=== PATIENT | female | born 1950 | race Caucasian/White ===

== ENCOUNTER → 2022-04-23 10:36 | Outpatient (CLI) | payer MEDICARE, MEDICAID, SELFPAY | PROVIDERS: PCP Internal Medicine Adolescent Medicine; Visit Provider Internal Medicine Adolescent Medicine | DX: G47.33 Obstructive sleep apnea (adult) (pediatric) (principal); G25.81 Restless legs syndrome | CPT/HCPCS: G0399 ==

== ENCOUNTER 2023-12-08 09:37 | Outpatient (CLI) | payer MEDICARE, MEDICAID, SELFPAY ==
--- NOTE | 2023-12-08 09:47 | CT_ITS ---
FINAL REPORT TECHNIQUE: Thin section axial CT with IV contrast supplemented with 3D MIP reconstruction under CT Angiogram protocol CLINICAL HISTORY: VENOUS INSUFFICIENCY FINDINGS: CT ABDOMEN, CT PELVIS, CTA ABDOMEN, CTA PELVIS AND CTA LOWER EXTREMITY RUNOFF CT ANGIOGRAM ABDOMEN AND PELVIS: There is moderate diffuse plaque disease of the aorta. There is 40% stenosis of the distal aorta. 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 There is 40% stenosis of the right common iliac artery origin. Right external iliac artery is widely patent. 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 The left external iliac artery is small in caliber due to inflow disease. CTA RIGHT LOWER EXTREMITY: The femoral and popliteal vessels showed no significant stenosis or occlusion. There is two-vessel runoff to the right calf, predominantly through the anterior tibial artery. The posterior tibial artery is occluded at the origin. Peroneal artery tapers to occlusion in the distal 3rd. CTA LEFT LOWER EXTREMITY: The femoral and popliteal vessels show no significant stenosis or occlusion. There is three-vessel runoff of the proximal calf. Abdomen: There is left renal atrophy. Remaining solid organs are normal. There is moderate biliary ductal dilatation measuring up to 20 mm, probably related to previous cholecystectomy. Pelvis: The appendix is normal. The patient is status post hysterectomy. Pelvic bowel loops are unremarkable. No mass or fluid collection is seen. 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 Distal runoff limited by infrapopliteal disease, right greater than left. This study was performed using automated techniques to achieve radiation exposure as low as reasonably achievable Reviewed, Interpreted and Dictated by Serjio Syed MD Transcribed by Jackie Wagoner Authenticated and [facility]
[2023-12-08 10:13] LABS: Blood Urea Nitrogen 12 mg/dl (7-17); Estimated Glomerular Filt Rate 71 ml/min (>60); GFR (African American) 86 ML/MIN (>60)
[2023-12-08] MEDS: SODIUM CHLORIDE 0.9% 10ML SYR (RAD ONLY) 10 ML IV (11:05)
[2023-12-08] MEDS: IOPAMIDOL-370 (76%);100ML BOTTLE 120 ML IV (11:05)
[2023-12-08] MEDS: 0.9 % SODIUM CHLORIDE 50 ML VIAL 100 ML IV (11:05)
== END 2023-12-08 23:59 | disposition home or self-care (01) ==
LOC: RAD 09:39
PROVIDERS: PCP Internal Medicine Adolescent Medicine; Visit Provider Nurse Practitioner Family
DX: I87.2 Venous insufficiency (chronic) (peripheral) (principal)
CPT/HCPCS: 36415; 75635; 82565; 84520; Q9967